=== PATIENT | male | born 1955 | race Caucasian/White ===

== ENCOUNTER 2024-05-08 16:08 | Emergency (ER) | payer OTHER, SELFPAY ==
[2024-05-08 16:15] VITALS: BP 173/96; BMI 26.3
[2024-05-08 16:19] VITALS: BP 173/96
--- NOTE | 2024-05-08 16:22 | ED.GENMED ---
History of Present Illness
General
Chief Complaint: Fatigue
Source: patient
Exam Limitations: none
Time Seen by Provider: 05/08/24 16:12
History of Present Illness
History of Present Illness:
68-year-old male insulin-dependent diabetic with history of coronary artery disease presents with chief complaint of fatigue and not feeling well. He denies chest pain or shortness of breath. He does note pain to the left index finger. He had a
cardiac catheterization form 6 days ago at [facility]. Patient tells me he had a stent placed in his LAD. Prior to the stent placed he was experiencing chest pain. He denies any symptoms similar to this currently. Several weeks ago
he had a cubital tunnel carpal tunnel procedure on his right arm. 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 He lives by himself in the apartment. His neighbor called. He admits to not taking his diabetic medication for the
last 2 weeks fingerstick sugar in triage was 214
Phy Exam
Physical Exam
Physical Exam:
General: Well-appearing somewhat unkempt male no acute respiratory distress
HEENT: Normocephalic atraumatic
Heart: Regular rate and rhythm no murmurs
Lungs: Clear no wheeze
Abdomen soft nontender nondistended no guarding or rebound
Extremity:: No cyanosis right below-knee amputation
Course
Orders/Labs/Results
Orders:
Orders
05/08/24 16:25
Electrocardiogram (*1) Urgent
Reason for Study: Fatigue / Weakness
05/08/24 16:26
EKG- Treatment ONCE
05/08/24 16:27
Complete Blood Count/With Diff Urgent
Comprehensive Metabolic Panel Urgent
Troponin I Urgent
05/08/24 16:30
0.9% Sodium Chloride 1000 ml [Nss] 1,000 ml IV BOLUS
05/08/24 16:32
CR Hand - Left Min 3 Views Urgent
Comment:
Reason For Exam: pain in finger
05/08/24 16:37
COVID-19 Antigen Urgent
Source: Nasal Swab
05/08/24 17:09
CR Chest - 2 Views Urgent
Comment:
Reason For Exam: fatigue
05/08/24 18:59
Diabetes Education Consult Routine
Reason for Consult: Other
Other reason for consult: ensure proper regimen
Newly Diagnosed?: No
Abnormal Lab Results
05/08/24 05/08/24
16:22 16:27
Absolute Neuts (auto) 6.7 H 10^3/uL
(1.4-6.5)
Lymphocytes % 18.5 L %
(20.5-51.1)
Glucose 226 H mg/dl
(70-99)
Calcium 10.3 H mg/dl
(8.4-10.2)
POC Glucose 214 H mg/dl
(70-99)
05/08/24 16:27
05/08/24 16:27
Vital Signs
Initial and Last Documented VS:
Initial Vital Signs
Temp Pulse Resp BP Pulse Ox
98.4 F 92 14 173/96 97
05/08/24 16:15 05/08/24 16:15 05/08/24 16:15 05/08/24 16:15 05/08/24 16:15
Last Documented Vital Signs
Temp Pulse Resp BP Pulse Ox
98.4 F 89 21 173/96 96
05/08/24 16:15 05/08/24 16:30 05/08/24 16:30 05/08/24 16:19 05/08/24 16:30
MDM/Problems Addressed
Differential Diagnosis Includes:
Patient with vague symptoms of fatigue and not feeling well but does have significant comorbidities including cardiac disease requiring a stent 6 days ago as well as insulin and diabetes.
Patient does not have chest pain. Will check labs including troponin. He states he has been taking his medications in quite some time patient is in no respiratory distress will evaluate for possible acidosis
*Critical Care Note
Total Time (30-74mins, 75-104mins- exclusive of procedures): Not Applicable
Update Note
Update Note:
Workup here essentially negative with normal troponin chest x-ray clear electrolytes normal. No sign of DKA. Patient reassured. He expresses his desire to go home. Patient has no other symptoms to complain of other than generalized fatigue.
Cole with family on the phone. They state that he has run out of his diabetic supplies at home. Discussed this with the diabetic education team and prescribed appropriate materials including glucometer, lancets, test strips insulin to the [facility]
in [place]. Consult for diabetes education was placed for outpatient follow-up
ED Attending Note
-
Portions of this chart may have been created with voice recognition software.� Occasional wrong word or��sound alike� substitutions may have occurred due to the inherent limitations of voice recognition software.
Discharge Plan
Departure
Prescriptions:
New
Novolin 70/30 U-100 Insulin 100 unit/mL (70-30) suspension
12 unit SC BID Qty: 10 0RF
(DME) blood-glucose meter [Blood Glucose Monitoring] Kit
See Rx Instructions .Route Qty: 1 0RF
Rx Instructions:
As directed
(DME) insulin syr/ndl U100 half sanjeev 0.3 mL 29 gauge x 1/2' syringe
See Rx Instructions .Route Qty: 100 0RF
Rx Instructions:
As directed
(DME) Blood Glucose Test Strip
See Rx Instructions .Route Qty: 50 0RF
Rx Instructions:
As directed
No Action
atorvastatin 80 mg tablet
80 mg PO QPM
carvedilol 12.5 mg tablet
12.5 mg PO BID
insulin glargine [Lantus U-100 Insulin] 100 unit/mL solution
15 unit SC HS
lisinopril 20 mg tablet
20 mg PO DAILY
insulin aspart U-100 [Novolog U-100 Insulin aspart] 100 unit/mL solution
5 - 6 unit SC MEALS
nitroglycerin 0.4 mg tablet, sublingual
0.4 mg sublingual [id number] PRN (Reason: chest pain)
pregabalin 150 mg capsule
150 mg PO TID
Patient Comments:
05/08/2024: last filled 04/16/24, 90 tabs for [address] [id number]
oxycodone 10 mg tablet
10 mg PO QIDPRN PRN (Reason: moderate pain)
Patient Comments:
05/08/2024: last filled 04/22/24, 64 tabs for [address] [id number]
Referrals:
Emil Ramos MD [Family Provider] -
Activity Restrictions/Additional Instructions:
Prescriptions for diabetic supplies sent to [facility] in [place]. Please get these filled as soon as possible. The diabetic education team will be calling you for further discussion. Please return here if worse otherwise
Interventions
Interventions:
*Risk Screen - Suicide Last Done: 05/08/24 16:15
*General Assessment Last Done: 05/08/24 16:15
*Neglect/Abuse Screening Last Done: 05/08/24 16:15
*ED COVID-19 Vaccine History Last Done: 05/08/24 16:15
Discharge Date and Time
Print Language: IRAQI
[2024-05-08 16:24] LABS: Glucose - Point of Care 214 mg/dl (70-99)
[2024-05-08 16:35] LABS: % Basophils 0.8 % (0-2); % Eosinophils 0.5 % (0-6); % Immature Granulocytes 0.4 % (0-0.5); % Lymphocytes 18.5 % (20.5-51.1); % Monocytes 6.8 % (1.7-9.3); Absolute Basophils 0.1 10^3/uL (0-0.2); Absolute Eosinophils 0.1 10^3/uL (0-0.7); Absolute Lymphocytes 1.7 10^3/uL (1.2-3.4); Absolute Monocytes 0.6 10^3/uL (0.1-0.6); Absolute Neutrophils 6.7 10^3/uL (1.4-6.5); Hemoglobin 17.7 g/dL (13.0-18.0); Mean Corp Hgb Conc. 35.4 g/dL (33.0-37.0); Mean Corpuscular Hgb 29.5 pg (27.0-31.0); Mean Corpuscular Volume 83.3 fL (80.0-94.0); Mean Platelet Volume 9.1 fL (7.4-10.4); Nucleated Red Blood Cells % 0 % (-); Platelet Count 320 10^3/uL (130-400); Red Cell Dist. Width 12.9 % (11.5-14.5); White Blood Cell Count 9.2 10^3/uL (4.8-10.8)
[2024-05-08] MEDS: NSS 1000 IV (16:40)
[2024-05-08 16:50] LABS: ALT (SGPT) 20 U/L (0-50); AST (SGOT) 22 U/L (17-59); Albumin 4.7 g/dl (3.5-5.0); Alkaline Phosphatase 99 U/L (38-126); Blood Urea Nitrogen 13 mg/dl (9-20); Calcium 10.3 mg/dl (8.4-10.2); Carbon Dioxide 25 mmol/L (22-30); Chloride 101 mmol/L (98-107); Estimated Creatinine Clearance 79 ml/min; Glucose 226 mg/dl (70-99); Potassium 4.7 mmol/L (3.5-5.1); Sodium 142 mmol/L (135-145); Total Bilirubin 0.9 mg/dl (0.2-1.3); Total Protein 8.1 g/dl (6.3-8.2); eGFR > 60.00
[2024-05-08 17:00] VITALS: BP 162/84
[2024-05-08 17:02] LABS: Troponin I < 0.012 ng/ml
[2024-05-08 17:10] LABS: COVID-19 Antigen Negative (Negative)
[2024-05-08 18:00] VITALS: BP 145/74
[2024-05-08 19:00] VITALS: BP 167/96
== END 2024-05-08 19:30 | disposition home or self-care (01) ==
LOC: EMR 16:08
PROVIDERS: Physician Assistant; EMERGENCY PHYSICIAN Student in an Organized Health Care Education/Training Program; FAMILY PHYSICIAN Internal Medicine
DX: R53.83 Other fatigue (principal); E11.9 Type 2 diabetes mellitus without complications; I25.10 Atherosclerotic heart disease of native coronary artery without angina pectoris; Z79.4 Long term (current) use of insulin; Z89.511 Acquired absence of right leg below knee; Z95.5 Presence of coronary angioplasty implant and graft; Z60.2 Problems related to living alone
CPT/HCPCS: 96360; 99284; 71046; 73130; 80053; 82962; 84484; 85025; 87811; 93005